=== PATIENT | female | born 1980 | race American Indian/Alaskan Native ===

== ENCOUNTER 2021-07-02 09:52 | Day surgery (SDC) | payer OTHER ==
--- NOTE | 2021-07-02 09:33 | Short Stay Summary ---
Short Stay Documentation Date of service: 07/02/21 Narrative H&P: 40y/o with undesired fertility. The patient is aware of other contraceptive options and has elected for permanent sterilization. - History Principal diagnosis: Unwanted fertility Past Medical History: hyperlipidemia Past Surgical History: No surgical history Social history: single - Allergies and Medications Current Medications: Allergies No Known Allergies Allergy (Unverified 06/25/21 16:35) Home Medications Medication Instructions Recorded Confirmed Last Taken Type No Known Home Medications [No 06/25/21 06/25/21 Unknown History Reported Home Medications] - Physical exam General appearance: no acute distress Integumentary: no rash HEENT: Atraumatic Lungs: Clear to auscultation Breasts: deferred Heart: Regular rate Gastrointestinal: normal, normoactive bowel sounds, organomegaly Rectal Exam: deferred - Brief post op/procedure progress note Date of procedure: 07/02/21 Pre-op diagnosis: Unwanted fertility Post-op diagnosis: same Procedure: Laparoscopy Bilateral tubal ligation with Filshie clips Hysteroscopy Removal of IUD Anesthesia: SHARLA Surgeon: ESTHER GOODRICH Estimated blood loss: minimal Pathology: list (IUD) Specimen disposition: to lab Condition: stable - Hospital course Hospital course: The patient was admitted the day of surgery underwent a tubal ligation and hysteroscopic removal of IUD. Please see operative note for details of surgery. Postoperative course was uneventful. - Disposition Condition at discharge: Good Disposition: 01 HOME / SELF CARE / HOMELESS Short Stay Discharge Plan Activity: other (Pelvic rest for 1 week) Diet: regular Additional Instructions: Follow-up is not required Follow-up as needed Prescriptions: Ibuprofen [Motrin] 800 mg PO Q8HR PRN #30 tablet PRN Reason: Pain , Severe (7-10) HYDROcodone/APAP 5-325 [[place] 5/325] 1 each PO Q6HR PRN #15 tablet PRN Reason: Pain
[2021-07-02] MEDS ORDERED: HYDROmorphone 1 MG/1 ML INJ IV PRN (10:32)
[2021-07-02] MEDS ORDERED: ONDANSETRON 4 MG/2 ML INJ IV PRN (10:32)
[2021-07-02] MEDS ORDERED: MAGNESIUM OXIDE 400 MG TAB PO ONE (10:32)
[2021-07-02] MEDS ORDERED: ACETAMINOPHEN 500 MG TAB PO ONE (10:32)
--- NOTE | 2021-07-02 10:34 | Anesthesia Day of Surgery ---
Anesthesia Day of Surgery - Day of Surgery Patient Examined: Yes Patient H&P Reviewed: Yes Patient is NPO: Yes
--- NOTE | 2021-07-02 10:38 | Anesthesia Consultation ---
Anesthesia Consult and Med Hx Date of service: 07/02/21 - Airway Anesthetic Teeth Evaluation: Good ROM Head & Neck: Adequate Mental/Hyoid Distance: Adequate Mallampati Class: Class II Intubation Access Assessment: Good - Pre-Operative Health Status ASA Pre-Surgery Classification: ASA1 Proposed Anesthetic Plan: General - Cardiovascular System Hx Hypertension: No (Went to ED few months ago for CP. None since. Records on chart) - Central Nervous System Hx Psychiatric Problems: No - Hematic Hx Sickle Cell Disease: No - Other Systems Hx Alcohol Use: Yes (Occas) Hx Cancer: No
[2021-07-02] MEDS ORDERED: LACTATED RINGERS 1,000 ML IV SCH (10:45)
[2021-07-02] MEDS ORDERED: CELECOXIB 200 MG CAP PO NR (11:00)
[2021-07-02] MEDS ORDERED: MIDAZOLAM 2 MG/2 ML INJ IV NR (11:00)
[2021-07-02] MEDS ORDERED: BUPIVACAINE/PF (0.5%) 5 MG/1 ML 30 ML VIAL INFILTRATI ONE ×2 (11:17→13:00)
[2021-07-02] MEDS ORDERED: ROCURONIUM 50 MG/5 ML INJ IV ONE (11:43)
[2021-07-02] MEDS ORDERED: fentaNYL 100 MCG/2 ML INJ ONE (11:44)
[2021-07-02] MEDS ORDERED: MIDAZOLAM 2 MG/2 ML INJ ONE (11:44)
[2021-07-02] MEDS ORDERED: propofoL 200 MG/20 ML VIAL IV ONE (11:44)
[2021-07-02] MEDS ORDERED: GLYCOPYRROLATE 0.4 MG/2 ML INJ ONE (13:00)
[2021-07-02] MEDS ORDERED: SODIUM CHLORIDE 0.9% IRR 1,500 ML BOTTLE IR ONE (13:00)
[2021-07-02] MEDS ORDERED: SODIUM CHLORIDE 0.9% IRRIG SOLN 2000 ML IR ONE (13:00)
[2021-07-02] MEDS ORDERED: NEOSTIGMINE 10MG/10 ML INJ MDV ONE (13:00)
[2021-07-02] MEDS ORDERED: KETOROLAC 30 MG/1 ML INJ ONE (13:07)
[2021-07-02] MEDS ORDERED: ONDANSETRON 4 MG/2 ML INJ ONE (13:07)
[2021-07-02] MEDS ORDERED: dexAMETHasone 20 MG/5 ML VIAL ONE (13:07)
--- NOTE | 2021-07-02 13:21 | Operative Report ---
Operative Report Operative Report: Date of surgery: July 02, 2021 Preoperative diagnosis: Unwanted fertility Postoperative diagnosis: Same as above Procedure: Laparoscopic bilateral tubal ligation with Filshie clips; hysteroscopic removal of IUD Surgeon: Alessandra Anand M.D. Anesthesia: General endotracheal anesthesia Estimated blood loss: Minimal Findings: Retained IUD Indication: 40-year-old -0-0-2 with a history of a retained IUD and unwanted fertility Procedure: The patient was taken to the operating room and given general endotracheal anesthesia without complication. The patient is prepped and draped in a normal sterile fashion. A bivalve speculum was placed in the patient's vagina and a single-tooth tenaculum was placed on the anterior lip of the cervix .the hysteroscope was then inserted after dilating the cervical os. The IUD was visualized and removed with a grasper. A uterine acorn manipulator was placed, and the bivalve speculum was then removed. Attention was then turned to the patient's abdomen where a 5 mm infraumbilical skin incision was then made. A Veress needle was placed and peritoneal entry was verified water-filled syringe. Insufflation of the peritoneal cavity was performed with CO2 gas. A 5 mm trocar was placed and the laparoscope was then inserted. The patient was then placed in Trendelenburg. A 7 mm suprapubic skin incision was then made. Under direct visualization a 7 mm trocar was then placed. An additional 5 mm left lateral trocar was also placed. General survey of the patient's abdomen revealed normal uterus tubes and ovaries. The fallopian tube was then followed out to the fimbriated end. A Filshie clip was applied to the ampullary portion of the tube this was performed on the contralateral side as well. The trocars were then removed. The pneumoperitoneum was then released. The 5 mm trocar laparoscope was then removed. The skin incisions were then closed with 4-0 Monocryl. The incisions were injected with quarter percent Marcaine. Dressings were applied to the incision. The vaginal instruments were then removed atraumatically. Then successfully extubated and taken to the recovery room. All sponge laps and needle counts were correct x2.
[2021-07-02] MEDS: HYDROmorphone 1 MG/1 ML INJ IV PRN ×2 (13:38→13:55)
[2021-07-02 16:51] VITALS: BP 128/82
--- NOTE | 2021-07-02 17:27 | Post Anesthesia Evaluation ---
- Post Anesthesia Evaluation Patient Participated: Yes Airway Patent: Yes Stable Respiratory Function: Yes Nausea/Vomiting: No Temp > 96.8F: Yes Pain Manageable: Yes Adequeate Hydration: Yes Anesthesia Complications: No Block Receding Appropriately: Not Applicable Patient on Ventilator: No
== END 2021-07-02 16:20 | disposition home or self-care (01) ==
LOC: OR 09:52
PROVIDERS: ATTEND Obstetrics & Gynecology
DX: Z64.0 Problems related to unwanted pregnancy (principal); T83.39XA Other mechanical complication of intrauterine contraceptive device, initial encounter; Z79.899 Other long term (current) drug therapy; Z98.890 Other specified postprocedural states; Y83.8 Other surgical procedures as the cause of abnormal reaction of the patient, or of later complication, without mention of misadventure at the time of the procedure
CPT/HCPCS: 58562; 58671; 81025; 88300; A4217; J1100; J1170; J1885; J2250; J2405; J2704; J2710; J3010; J7120; 88302